=== PATIENT | male | born 2000 | race Caucasian/White ===

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

== ENCOUNTER 2023-03-17 13:38 | Emergency (ER) | payer OTHER ==
[2023-03-17 13:54] VITALS: BP 139/68; PULSE 76; RESP 17; TEMP 98.1; BMI 32.3
[2023-03-17] MEDS ORDERED: ONDANSETRON *ODT* 4 MG TABLET SL ONE (14:29)
[2023-03-17] MEDS ORDERED: MAG HYDROX/AL HYDROX/SIMETH -MYLANTA- ORAL SUSPENSION PO ONE (14:29)
[2023-03-17] MEDS ORDERED: MAG HYDROX/AL HYDROX/SIMETH 30 ML UNIT-DOSE CUP ONE (14:33)
[2023-03-17] MEDS ORDERED: ONDANSETRON *ODT* 4 MG TABLET ONE (14:33)
== END 2023-03-17 14:57 | disposition home or self-care (01) ==
LOC: JER 13:38
DX: K52.9 Noninfective gastroenteritis and colitis, unspecified (principal); R11.0 Nausea
CPT/HCPCS: 99283-25; Q0162

== ENCOUNTER 2023-04-08 14:51 | Emergency (ER) | payer OTHER ==
[2023-04-08 15:00] VITALS: BMI 32.5
[2023-04-08 18:28] VITALS: BP 138/79; PULSE 99; RESP 16; TEMP 98.8
== END 2023-04-08 18:28 | disposition home or self-care (01) ==
LOC: JERFT 14:51
DX: R05.1 Acute cough (principal); B34.9 Viral infection, unspecified; Z20.822 Contact with and (suspected) exposure to COVID-19
CPT/HCPCS: 0241U-QW; 71046-TC-FY; 93005; 93010; 99285-25

== ENCOUNTER 2024-09-16 19:28 | Emergency (ER) | payer OTHER ==
[2024-09-16 19:37] VITALS: BP 121/61; PULSE 90; RESP 18; TEMP 98.3; BMI 32.3
[2024-09-16] MEDS ORDERED: predniSONE 10 MG TABLET (UD) ONE (20:05)
[2024-09-16] MEDS ORDERED: FAMOTIDINE 20 MG TABLET ONE (20:05)
[2024-09-16] MEDS ORDERED: predniSONE 20 MG TABLET (UD) ONE (20:05)
[2024-09-16] MEDS: FAMOTIDINE 20 MG TABLET PO ONE (20:07)
[2024-09-16] MEDS: predniSONE 20 MG TABLET (UD) PO ONE (20:07)
== END 2024-09-16 20:33 | disposition home or self-care (01) ==
LOC: JERFT 19:28
DX: R21 Rash and other nonspecific skin eruption (principal); L29.9 Pruritus, unspecified; T78.40XA Allergy, unspecified, initial encounter
CPT/HCPCS: 99283-25